=== PATIENT | female | born 1985 | race Caucasian/White ===

== ENCOUNTER 2023-09-25 13:49 | Outpatient (REF) | payer MEDICAID, SELFPAY ==
[2023-09-28 21:24] LABS: TS Negative Control Passed; TS Panel A 0; TS Panel B 0; TS Positive Control Passed; TSpotTB Negative (Negative)
== END 2023-09-25 13:50 | disposition home or self-care (01) ==
LOC: HO.LAB 13:49
PROVIDERS: PCP Registered Nurse; Visit Provider Registered Nurse
DX: Z11.1 Encounter for screening for respiratory tuberculosis (principal)
CPT/HCPCS: 36415; 86481

== ENCOUNTER 2023-10-30 16:17 | Outpatient (REF) | payer MEDICAID, SELFPAY ==
[2023-10-30 18:27] LABS: Influenza A PCR NEGATIVE (Negative); Influenza B PCR NEGATIVE (Negative); Resp Syncy Virus RNA Qual PCR NEGATIVE (Negative); SARS COV2 PCR INHOUSE NEGATIVE (Negative)
== END 2023-10-30 16:18 | disposition home or self-care (01) ==
LOC: HO.CHCLNP 16:17
PROVIDERS: Visit Provider Registered Nurse
DX: R05.8 Other specified cough (principal); Z11.52 Encounter for screening for COVID-19; Z20.828 Contact with and (suspected) exposure to other viral communicable diseases
CPT/HCPCS: 0241U

== ENCOUNTER 2024-02-19 10:40 | Outpatient (REF) | payer MEDICAID, SELFPAY ==
[2024-02-19 14:44] LABS: MANUAL DIFF FLAG NO
[2024-02-19 14:48] LABS: Basophils Absolute Auto 0.1 X10*3/uL (0.0-0.2); Eosinophils Absolute Auto 0.1 X10*3/uL (0.0-0.4); Eosinophils Percent Auto 1.5 % (0-4); Hematocrit 40.2 % (37.0-47.0); Hemoglobin 13.5 g/dl (12.0-16.0); Imm Gran Abs Auto 0.02 X10*3/uL (0.00-0.03); Imm Gran Pct Auto 0.2 % (0.0-0.4); Lymphocytes Absolute Auto 3.2 X10*3/uL (1.2-4.9); Lymphocytes Percent Auto 39.8 % (20-40); Mean Corpuscular HGB Conc 33.6 g/dl (31.0-35.0); Mean Corpuscular Hemoglobin 30.5 pg (27.0-33.0); Mean Platelet Volume 10.4 fL (9.4-12.3); Monocytes Absolute Auto 0.5 X10*3/uL (0.1-1.2); Monocytes Percent Auto 5.9 % (2-11); Neutrophils Absolute Auto 4.2 x10*3/uL (2.0-8.3); Neutrophils Percent Auto 51.6 % (45-73); Platelet Count 384 X10*3/uL (160-400); Red Blood Count 4.42 X10*6/uL (4.20-5.50); Red Cell Distribution Width 12.6 % (11.0-16.0); White Blood Count 8.1 X10*3/uL (4.8-10.8)
[2024-02-19 15:03] LABS: Estimated Average Glucose 103 mg/dL; Hemoglobin A1C 116.5948 umol/L; Hemoglobin A1c % 5.2 % (<6.0)
[2024-02-19 15:16] LABS: Alanine Aminotransferase 33 U/L (0-31); Albumin Level 4.4 g/dL (3.5-5.0); Alkaline Phosphatase 72 U/L (39-117); Anion Gap 12 (12-20); Aspartate Amino Transferase 26 U/L (5-31); Bilirubin Total 0.5 mg/dL (0.0-1.0); Blood Urea Nitrogen 12 mg/dL (9-16); Calcium 9.7 mg/dL (8.4-10.2); Carbon Dioxide 26 mmol/L (22-29); Chloride 107 mmol/L (96-108); Cholesterol 189 mg/dL (<200); Estimated Glomerular Filt Rate > 60; Glucose Random 85 mg/dL (60-115); HDL Cholesterol 60 mg/dL (>40); LDL Cholesterol Calculated 112 mg/dL (<100); Potassium 3.5 mmol/L (3.3-5.1); Sodium 141 mmol/L (135-145); Total Protein 7.3 g/dL (6.5-8.0); Triglycerides 85 mg/dL (<150)
[2024-02-19 15:33] LABS: TSH reflex Free T4 1.22 uIU/mL (0.32-4.0)
[2024-02-21 08:29] LABS: HCV Log PCR <1.18 NOT DETECTED Log IU/mL (NOT DETECTED); HepC Viral Load <15 NOT DETECTED IU/mL (NOT DETECTED)
[2024-02-22 03:45] LABS: HBS Num1 > 1000.00 mIU/mL (0-7.99); HBc Num1 0.13 S/CO (0.00-0.79); HBsAGNum1 0.25 S/CO (0.00-0.99); HIV AB/AG Nonreactive (Nonreactive); HIV Num 1 0.06 S/CO (0.00-0.99); Hepatitis B Core Antibody Nonreactive (Nonreactive); Hepatitis B Surface Antigen Negative (Negative); ~Hepatitis B Surface Antibody REACTIVE (Nonreactive)
[2024-02-22 10:39] LABS: RPR Rapid Plasma Reagin NON-REACTIVE (NON-REACTIVE)
== END 2024-02-19 10:41 | disposition home or self-care (01) ==
LOC: HO.CHCLDS 10:40
PROVIDERS: Visit Provider Registered Nurse
DX: Z00.00 Encounter for general adult medical examination without abnormal findings (principal); Z13.89 Encounter for screening for other disorder
CPT/HCPCS: 36415; 80053; 80061; 83036; 84443; 85025; 86592; 86704; 86706; 87340; 87389; 87522

== ENCOUNTER 2024-03-11 08:26 | Outpatient (REF) | payer MEDICAID, SELFPAY ==
--- NOTE | ~2024-03-11 | US_ITS ---
EXAMINATION: US ABDOMEN COMPLETE CLINICAL INFORMATION: Right upper quadrant pain. COMPARISON: None available. TECHNIQUE: Real-time imaging of the abdominal viscera. FINDINGS: PANCREAS: Normal. ABDOMINAL AORTA: The proximal, mid, and distal segments are normal in caliber. INFERIOR VENA CAVA: Visualized portions are normal. LIVER: The liver is normal in size. The liver contour is normal. There is diffuse increased liver parenchymal echogenicity. No focal hepatic lesion. There is no intrahepatic biliary duct dilatation seen. GALLBLADDER: Surgically absent. COMMON BILE DUCT: Normal in caliber measuring 0.32 cm in diameter. RIGHT KIDNEY: Normal. No hydronephrosis. No renal calculi or focal parenchymal lesions. The kidney measures 10.5 cm in maximum dimension. LEFT KIDNEY: Normal. No hydronephrosis. No renal calculi or focal parenchymal lesions. The kidney measures 8.3 cm in maximum dimension. SPLEEN: Normal. The spleen measures 10.0 cm in maximum dimension. FREE FLUID: None. US/US abdomen complete IMPRESSION: There is generalized increase in hepatic echotexture, consistent with fatty infiltration or hepatocellular disease. Please correlate clinically. No focal hepatic mass or intrahepatic biliary dilatation is seen.
== END 2024-03-11 08:27 | disposition home or self-care (01) ==
LOC: HO.US 08:26
PROVIDERS: PCP Registered Nurse; Visit Provider Internal Medicine
DX: R10.11 Right upper quadrant pain (principal)
CPT/HCPCS: 76700

== ENCOUNTER 2024-03-22 06:34 | Day surgery (SDC) | payer MEDICAID, SELFPAY ==
--- NOTE | 2024-03-21 10:05 | HO.ANESPROP2 ---
HPI - Anesthesia Eval Consult details Narrative: 38yo F for Upper Endoscopy PMFSH Past Medical History Medical History ADHD Depression GERD (gastroesophageal reflux disease) Surgical History Surgical History History of ankle surgery (~2021) Hx of cholecystectomy (~1996) Social History Social History Patient Tobacco Use Status: Current everyday Tobacco user Cigarettes Per Day: 4 Meds Allergies Allergy/AdvReac Type Severity Reaction Status Date / Time epinephrine Allergy Unknown palpitation Verified 01/13/20 00:00 s morphine Allergy Unknown anxiety Verified 01/13/20 00:00 Home Medications ?Medication ?Instructions ?Recorded ?Confirmed ?Last Taken ?Type dextroamphetamine-amphetamine 20 1 tab PO BID 03/21/24 03/21/24 Unknown History mg tablet escitalopram oxalate 10 mg tablet 10 mg PO DAILY 03/21/24 03/21/24 Unknown History omeprazole 20 mg capsule,delayed 20 mg PO QAM 03/21/24 03/21/24 Unknown History release Assessment and Plan Assessment Anesthesia Assessment: Chart Reviewed
[2024-03-22 06:41] VITALS: BMI 33.9
[2024-03-22 06:57] LABS: UPreg QC Valid YES
[2024-03-22 06:58] LABS: Urine Pregnancy NEGATIVE (NEGATIVE)
[2024-03-22 07:01] VITALS: BP 138/85; PULSE 80; RESP 16; TEMP 36.3; O2SAT 98
[2024-03-22] MEDS: Lactated Ringers 1,000 ML 100 ML IVCONT (07:02)
--- NOTE | 2024-03-22 07:15 | P.CONAN_ITS ---
[facility] Past Medical History Medical History ADHD Depression GERD (gastroesophageal reflux disease) Patient : No Family History Family history of problems with anesthesia: No Surgical History Surgical History History of ankle surgery (~2021) Hx of cholecystectomy (~1996) History of Problems with Anesthesia: No Social History Social History Patient Tobacco Use Status: Current everyday Tobacco user Cigarettes Per Day: 4 Use of substances other than those prescribed or required for medical reasons: No Are you DNR?: No Advance Directives: No Advance Directives Information Provided: Yes Meds Allergies Allergy/AdvReac Type Severity Reaction Status Date / Time epinephrine Allergy Unknown palpitation Verified 01/13/20 00:00 s morphine Allergy Unknown anxiety Verified 01/13/20 00:00 Active Medications: Current Medications Lactated Ringer's (Lr) 1,000 mls @ 100 mls/hr IVCONT .Q10H MARGARET Last Admin: 03/22/24 07:02 Dose: 100 mls/hr Home Medications ?Medication ?Instructions ?Recorded ?Confirmed ?Last Taken ?Type dextroamphetamine-amphetamine 20 1 tab PO BID 03/21/24 03/21/24 Unknown History mg tablet escitalopram oxalate 10 mg tablet 10 mg PO DAILY 03/21/24 03/21/24 Unknown History omeprazole 20 mg capsule,delayed 20 mg PO QAM 03/21/24 03/21/24 Unknown History release Exam Height,Weight and Vital Signs: Height 5 ft 5 in Weight 92.533 kg Last Vital Signs Temp 97.3 F 03/22/24 07:01 Pulse 80 03/22/24 07:01 Resp 16 03/22/24 07:01 BP 138/85 03/22/24 07:01 Pulse Ox 98 03/22/24 07:01 O2 Del Method Room Air 03/22/24 07:01 Pertinent Lab Results Pertinent Lab Results: Laboratory Tests 03/22/24 06:45 Urine Test NEGATIVE Airway Mallampati Class: III TM Dist: >3cm Neck ROM: Full Heart: RRR Lungs: CTA Assessment and Plan Assessment Anesthesia Assessment: Anesthesia Plan Discussed and Smoking Cess. Discussed Final Anesthetic Review Family History of Problems with Anesthesia: No History of Problems with Anesthesia: No NPO: Yes ASA Class: II Final Preanesthetic Review: Meds/Shorty Chart Reviewed and Consent Obtained/Reviewed Patient Risk: Low Procedure Risk: Low Anesthetic Plan Anesthetic Plan: MAC: Disposition: Standard PACU
[2024-03-22 08:07] VITALS: BP 135/99; PULSE 81; RESP 16; TEMP 36.2; O2SAT 97
--- NOTE | 2024-03-22 08:15 | P.BOP_ITS ---
Brief Operative Note Date of Service: 03/22/24 Pre-op diagnosis: GERD Post-op diagnosis: other (Hiatal hernia) Procedure: EGD with biopsies Surgeon: Evin Cornell MD Anesthesia: MAC Was an Printing Sign Machine Operator used for this Procedure?: No Estimated blood loss (mL): 2.0 Pathology: other (A. Gastric antrum B. EG Junction at 35cm C. Gastric antral submucosal lesion) Condition: stable Disposition: PACU
[2024-03-22 08:22] VITALS: BP 122/74; PULSE 79; RESP 16; TEMP 36.2; O2SAT 99
--- NOTE | 2024-03-22 08:59 | OP_ITS ---
DATE OF SERVICE: 03/22/2024 SURGEON: Evin Cornell MD INDICATIONS: The patient presents for evaluation of chronic gastroesophageal reflux. Full consent obtained from her for this, including risks of bleeding and perforation. PREOPERATIVE DIAGNOSIS: Chronic gastroesophageal reflux. POSTOPERATIVE DIAGNOSIS: PROCEDURE PERFORMED: Esophagogastroduodenoscopy with biopsies. ESTIMATED BLOOD LOSS: COMPLICATIONS: ANESTHESIA: Monitored anesthesia care. ASSISTANTS: SPECIMENS: POSTOPERATIVE DIAGNOSES: Chronic gastroesophageal reflux, hiatal hernia, rule out Helicobacter pylori, benign-appearing submucosal antral lesion. DESCRIPTION OF PROCEDURE: The patient was placed in left lateral decubitus position. The Olympus video gastroscope was passed in the posterior oropharynx and upper esophagus under direct vision. Scope was passed slowly into the distal esophagus. Gastroesophageal junction appeared at 35 cm. There was some slight irregularity consistent with reflux, but no evidence of any esophagitis nor any definitive evidence of Leal mucosa. There was a small hiatal hernia. Scope was advanced to pylorus and the duodenum was cannulated in the descending portion. The duodenum including the bulb appeared normal without mass or ulceration. Scope was withdrawn back in the stomach. The gastric antrum and body had some minimal areas of erythema, but good peristalsis. There was no erosions or ulceration. Biopsies were obtained from the gastric antrum. Also in the gastric antrum, between the greater curvature and posterior wall was a flat, but raised benign-appearing submucosal lesion with overlying normal mucosa. It was soft. Biopsies were obtained. There was no overlying ulceration. The scope was retroflexed, visualizing the proximal stomach carefully, which appeared normal, without any sign of mass or ulceration. The scope was straightened and withdrawn back from the esophagus. Multiple biopsies were obtained at the EG junction at 35 cm. Proximal to this, the esophageal mucosa appeared normal. Scope was withdrawn from the patient. She tolerated the procedure well and was returned to recovery area in stable condition. IMPRESSION: 1. Small hiatal hernia, gastroesophageal reflux. 2. Minimal evidence of gastritis. 3. Benign submucosal gastric antral lesion. Status post biopsy. PLAN: Results of biopsies will be checked. She will continue her daily omeprazole as she does report it works well for her reflux. She does have an abdominal ultrasound pending, although I do suspect that would be normal. She has already been advised to try to stop smoking, watch her diet, and lose weight in regard to helping her reflux. If things are stable, she can see me again on a p.r.n. basis. MD JEREMIAH Lowry/GAUDENCIO / [phone]
--- NOTE | 2024-03-22 11:14 | HO.POSTANES ---
Post Anesthesia Evaluation Post Anesthesia Evaluation Date of Service: 03/22/24 Vital Signs: Vital Signs Temp Pulse Resp BP Pulse Ox O2 Del Method 03/22/24 08:22 97.1 F 79 16 122/74 99 Room Air 03/22/24 08:07 97.1 F 81 16 135/99 H 97 Room Air 03/22/24 07:01 97.3 F 80 16 138/85 98 Room Air Anesthesia: Monitored Mental Status: Awake Pain Control: Satisfactory Nausea/Vomiting: None Hydration: Adequate Anesthesia-Related Issues: No Anes. Related Issues
== END 2024-03-22 09:04 | disposition home or self-care (01) ==
PROVIDERS: Nurse Practitioner; PCP Registered Nurse; Visit Provider Internal Medicine
PROC: 0DJ08ZZ Inspection of Upper Intestinal Tract, Via Natural or Artificial Opening Endoscopic (ICD-10-PCS; CPT 43235; principal; 2024-03-22 07:30)
DX: R10.11 Right upper quadrant pain (principal); K31.89 Other diseases of stomach and duodenum; K29.60 Other gastritis without bleeding; K21.9 Gastro-esophageal reflux disease without esophagitis; K22.70 Barrett's esophagus without dysplasia; K44.9 Diaphragmatic hernia without obstruction or gangrene; F90.9 Attention-deficit hyperactivity disorder, unspecified type; F41.8 Other specified anxiety disorders; Z79.899 Other long term (current) drug therapy; F17.210 Nicotine dependence, cigarettes, uncomplicated
CPT/HCPCS: 43239; 81025; 88305; 88313; 88342; J2704

== ENCOUNTER 2024-03-24 14:29 | Outpatient (REF) | payer MEDICAID, SELFPAY ==
--- NOTE | 2024-03-24 14:38 | EMG_ITS ---
Chief complaint: Numbness on left big toe Reason for referral: Evaluate for neuropathy Referred by: Saige Trinh NP Procedure done: Request was for NCS/EMG of left lower extremity Precautions and/or limitations: None The limb temperature was monitored continuously and remained between 32-36 degrees C during the performance of the NCS. Nerve Conduction Studies Anti Sensory Summary Table ?Stim Site NR Onset (ms) Norm Onset (ms) Peak (ms) Norm Peak (ms) O-P Amp (?V) Norm O-P Amp Site1 Site2 Delta-0 (ms) Dist (cm) Bala (m/s) Norm Bala (m/s) Left Sup Peron Anti Sensory (Ankle) Lateral Leg ? 1.5 2.2 <4.4 6.5 >5.0 Lateral Leg Ankle 1.5 14.0 93 Left Sural Anti Sensory (Lat Mall) Calf ? 3.2 3.9 <4.0 3.0 >5.0 Calf Lat Mall 3.2 14.0 44 Right Sural Anti Sensory (Lat Mall) Calf ? 2.4 3.0 <4.0 1.2 >5.0 Calf Lat Mall 2.4 14.0 58 Motor Summary Table ?Stim Site NR Onset (ms) Norm Onset (ms) O-P Amp (mV) Norm O-P Amp iAmp (mV) Amp (1st) (%) Site1 Site2 Delta-0 (ms) Dist (cm) Bala (m/s) Norm Bala (m/s) Left Peroneal Motor (Ext Dig Brev) Ankle ? 3.9 <4.0 3.6 >2.5 4.4 100.0 Ankle Ext Dig Brev 3.9 0.0 B Fib ? 9.4 5.4 6.4 150.0 B Fib Ankle 5.5 30.0 55 >40 Poplt ? 10.1 5.3 6.4 147.2 Poplt B Fib 0.7 5.5 79 >40 Left Tibial Motor (Abd Ruelas Brev) Ankle ? 3.0 <5 7.4 >2.5 10.5 100.0 Ankle Abd Ruelas Brev 3.0 0.0 Knee ? 10.4 3.6 5.6 48.6 Knee Ankle 7.4 37.0 50 >40 EMG ?Side Muscle Nerve Root Ins Act Fibs Psw Amp Dur Poly Recrt Int Pat Comment Left AbdHallucis MedPlantar S1-2 Nml Nml Nml Nml Nml 0 Nml Complete Left AntTibialis Dp Br Peron L4-5 Nml Nml Nml Nml Nml 0 Nml Complete Left MedGastroc Tibial S1-2 Nml Nml Nml Nml Nml 0 Nml Complete Left VastusMed Femoral L2-4 Nml Nml Nml Nml Nml 0 Nml Complete Left ExtHallLong Dp Br Peron L5, S1 Nml Nml Nml Nml Nml 0 Nml Complete Left Peroneus Long Sup Br Peron L5-S1 Nml Nml Nml Nml Nml 0 Nml Complete Paraspinal EMG ?Side Muscle Nerve Root Ins Act Fibs Psw Comment Left Lumbar Upper Rami Nml Nml Nml Left Lumbar Mid Rami Nml Nml Nml Left Lumbar Lower Rami Nml Nml Nml FINDINGS: Bilateral sural nerves showed small amplitudes. All other nerves tested were within normal. Concentric needle EMG was performed in selected muscles of the left lower extremity. Study did not reveal signs of electric abnormalities as shown in the table above. IMPRESSION: 1. This is an abnormal study. 2. There are electrodiagnostic findings suggestive of a peripheral neuropathy, that is primarily sensory, with axonal features. 3. There is no electrodiagnostic evidence for peroneal neuropathy, tibial neuropathy. lumbosacral plexopathy, or lumbar radiculopathy on left lower extremity. CLINICAL COMMENT: Further clinical correlation recommended. Thank you for your kind referral. Samantha Peter MD, ADOLFO Board Certified, [place] [employer] and [employer] (ABPMR) Board Certified, [place] [employer] Electrodiagnostic [employer] (ABEM) [place] [id number] [facility]
== END 2024-03-24 14:30 | disposition home or self-care (01) ==
LOC: HO.NEURO 14:29
PROVIDERS: PCP Registered Nurse; Visit Provider Registered Nurse
DX: R20.0 Anesthesia of skin (principal); R20.2 Paresthesia of skin
CPT/HCPCS: 95886; 95909

== ENCOUNTER → 2024-03-24 14:38 | Outpatient (BNV) | payer MEDICAID, SELFPAY | PROVIDERS: PCP Registered Nurse; Visit Provider Physical Medicine & Rehabilitation | DX: R20.2 Paresthesia of skin (principal); G62.89 Other specified polyneuropathies | CPT/HCPCS: 95886; 95909 ==